=== PATIENT | male | born 1990 | race African-American/Black ===

== ENCOUNTER 2024-03-09 06:12 | Emergency (ER) | payer OTHER ==
--- OUTSIDE RECORDS SUMMARY | 2024-03-09 06:15 | XMS REPORT | Continuity of Care Document ---
Author Name Unknown Address [address] [facility] [address] [place] [address] [facility] thconnect Address [address] [facility] [address] [place] [address] Care Team Providers Care Dredgemaster Name Role Phone Blair Patel DO Primary Care Physician + [phone] Doctor Unassigned, [place] Attending Clinician U Misbah Bautista Attending Clinician [phone] MISBAH GOMEZ Attending Clinician Unavailable JOIE GALDAMEZ Attending Clinician Unavailable ROYCE ROBERTS Attending Clinician Unava ilDUANE Brown Attending Clinician Cecilia vailable MISBAH GOMEZ Admitting Clinician Unavailable KATHY NIETO Admitting Clinician Unavailab le Payers Payer Name Policy Type Policy Number Effective Date Expirati on Date Source Problems Condition Name Condition Details Condition Category Status Onset Date Resolution Date Last Treatment Date Treating Clinician Comments Source 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 [facility] Allergies, Adverse Reactions, Alerts Allergy Name Allergy Type Status Severity Reaction(s) Onset Date Inactive Date Treating Clinician Comments Source NO KNOWN ALLERGIE S Drug Class Active [facility] Social History Social Habit Start Date Stop Date Quantity Comments Source History of tobacco use Cigarette Smoker [facility] to SARS-CoV-2 (event) 2022-05-18 00:00:00 2022-05-28 13:34:00 Not sure [facility] Alcohol intake 2010 00:00:00 2010 00:00:00 [facility] Tobacco Comment 2010 00:00:00 2010 00:00:00 1 cigarette a day [facility] Sex Assigned At 1990 00:00:00 1990 00:00:00 [facility] Smoking Status Start Date Stop Date Source Smokes tobacco daily 2010 00:00:00 [facility] Medications Ordered Medication Name Filled Medication Name Start Date Stop Date Current Medication? Ordering Clinician Indication Dosage Frequency Signature (SIG) Comments Components Source loratadine 10 mg tablet 2021-08 00:00: 00 Yes [id number] 10mg Take 1 tablet by mouth in the morning. [facility] fluticasone propionate 50 mcg/actuati on nasal spray 2021-08 00:00: 00 Yes [id number] 2{spray } Use 2 Sprays in each nostril in the morning. [facility] benzonatate 200 mg capsule 2021-08 00:00: 00 Yes [id number] 200mg Take 1 capsule by mouth 3 (three) times daily as needed for Cough. [facility] albuterol (VENTOLIN) 90 mcg/Actuati on inhaler 2009-08 00:00: 00 Yes 2{puff} Inhale 2 Puffs every 4 (four) hours as needed for Wheezing and Shortness of Breath. [facility] hydrocodone -acetaminop hen (LORTAB) 7.5-500 mg/15 mL(15 mL) solution 04-26 00:00: 00 Yes 15mL Take 15 mL by mouth every 4 (four) hours as needed for Pain. [facility] hydrocodone -acetaminop hen (NORCO 5) 5-325 mg tablet 04-25 00:00: 00 Yes 1{tbl} Take 1-2 Tabs by mouth every 4 (four) hours as needed for Pain. [facility] albuterol (VENTOLIN) 90 mcg/Actuati on inhaler 02-07 00:00: 00 Yes [id number] 2{puff} Inhale 2 Puffs every 4 (four) hours as needed for Wheezing and Shortness of Breath. [facility] ZYRTEC 10 MG ORAL TAB 2008-08 00:00: 00 Yes 1 po daily [facility] Vital Signs Vital Name Observation Time Observation Value Comments S ource Systolic blood pressure 2022-05-28 17:23:00 137 mm[Hg] [facility] Diastolic blood pressure 2022-05-28 17:23:00 101 mm[Hg] [facility] Heart rate 2022-05-28 17:23:00 84 /min [facility] Body temperature 2022-05-28 17:23:00 36.83 Coleen [facility] Respiratory rate 2022-05-28 17:23:00 17 /min [facility] Body height 2022-05-28 17:23:00 170.2 cm [facility] Body weight 2022-05-28 17:23:00 123.378 kg [facility] BMI 2022-05-28 17:23:00 42.60 kg/m2 [facility] Oxygen saturation in Arterial blood by Pulse oximetry 2022-05-28 17:23:00 98 /min [facility] Procedures Procedure Date / Time Performed Performing Clinicia n Source REFERRAL- REQUEST/RESPONSE 2023-06-03 05:01:00 Doctor Unassigned, [place] [facility] XR CHEST 2 VW 2022-05-28 18:42:00 Misbah Gomez [facility] RAPID INFLUENZA A/B 2022-05-28 18:33:00 GomezCherrie barcenas juan [facility] COVID-19 (ID NOW RAPID TESTING) 2022-05-28 18:33:00 Misbah Gomez [facility] CONSENT/REFUSAL FOR DIAGNOSIS AND TREATMENT 2022-05-28 17:14:40 Doctor Unassigned, [place] [facility] Encounters Start Date/Time End Date/Time Encounter Type Admission Type Attending [facility] Care Department Encounter ID Source 2023-06-03 00:00:00 2023-06-03 00:00:00 Orders Only Doctor Unassigned, [place] [facility] [id number] [facility] 2022-05-28 12:25:00 2022-05-28 15:16:00 Emergency GomezMisbah barcenas [facility] [id number] [facility] 2022-05-28 12:25:00 2022-05-28 15:16:00 Emergency X MISBAH GOMEZ [facility] ERT [id number] [facility] 2022-03-19 12:27:00 2022-03-19 13:00:00 Emergency X JOIE GALDAMEZ [facility] ERT [id number] [facility] 2019-10-30 19:16:00 2019-10-30 22:59:00 Emergency E ROYCE ROBERTS [facility] [id number] [facility] 2019-10-30 16:30:00 2019-10-30 17:30:00 Emergency E DUANE COLLINS [facility] [id number]
[2024-03-09] MEDS ORDERED: KETOROLAC 30 MG/ML INJ ONE (06:24)
[2024-03-09] MEDS ORDERED: MORPHINE 4 MG/ML SYR ONE (06:25)
[2024-03-09] MEDS ORDERED: DIPHENHYDRAMINE 50 MG/ML VIAL ONE (06:25)
[2024-03-09] MEDS ORDERED: NA CHLORIDE 0.9% 1,000 ML ONE (06:25)
[2024-03-09] MEDS ORDERED: METOCLOPRAMIDE 10 MG/2mL INJ ONE (06:25)
[2024-03-09 07:32] LABS: Absolute Eosinophils 0.2 K/uL (0-0.5); Absolute Lymphocytes (CBC) 1.6 K/uL (0.7-4.9); Absolute Monocytes 0.3 K/uL (0.1-1.3); Absolute Neutrophil 4.4 K/uL (1.8-8.0); Basophils % 0.7 % (0-1.3); Eosinophils % 2.6 % (0-4.4); Hematocrit 40.9 % (39.6-49.0); Hemoglobin 13.2 g/dL (13.6-17.9); Lymphocytes % 24.9 % (15.3-44.8); MCH 25.9 pg (27.0-35.0); MCHC 32.4 g/dL (32.0-36.0); MCV 80.1 fL (80-100); MPV 7.3 fL (7.6-11.3); Monocytes % 4.5 % (3.3-12.3); Neutrophils % 67.3 % (41.7-73.7); Nucleated Red Blood Cells % 0.3 % (0-0); Platelets 344 thou/uL (152-406); RBC Red Blood Cell Count 5.11 M/uL (4.33-5.43); Red Cell Distribution Width 14.6 % (12.1-15.2)
[2024-03-09 07:49] LABS: Albumin 3.5 g/dL (3.4-5.0); Albumin/Globulin Ratio 0.9 (1.1-1.8); Anion Gap 2.8 mEq/L (5.0-15.0); Bilirubin Total 0.4 mg/dL (0.2-1.0); Globulin 3.9 g/dL (2.3-3.5); Potassium 3.8 mEq/L (3.5-5.1); Protein, Total 7.4 g/dL (6.4-8.2)
--- NOTE | 2024-03-09 08:04 | RAD REPORT ---
EXAM DESCRIPTION: CT - Head Brain Wo Cont - 03/09/2024 6:55 am CLINICAL HISTORY: HEADACHE COMPARISON: No comparisons TECHNIQUE: Noncontrast head CT images were obtained without IV contrast. Multiplanar reformats were generated and reviewed. All CT scans are performed using dose optimization technique as appropriate and may include automated exposure control or mA/KV adjustment according to patient size. FINDINGS: Left frontal approach ventriculostomy catheter crosses the midline, and terminates near th e right foramen of Monro. No intracranial hemorrhage, mass, or edema. Midline structures are unremarkable. Normal ventricular caliber for age. Zaldivar-white matter differentiation is preserved, without evidence of acute infarct. No abnormal extra- axial fluid collections. Mastoid air cells and visualized portions of the paranasal sinuses are clear. No acute bony findings. IMPRESSION: No evidence of an acute intracranial process.
--- NOTE | 2024-03-09 08:09 | ER ---
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 Coronavirus 12 screen: At this time, the client does not indicate any symptoms associated with coronavirus-19. Ebola Screen: No symptoms or risks identified at this time. Initial Sepsis Screen: Does the patient meet any 2 criteria? No. Patient's initial sepsis screen is negative. Does the patient have a suspected source of infection? No. Patient's initial sepsis screen is negative. Risk Assessment: Do you want to hurt yourself or someone else? Patient reports no desire to harm self or others. Onset of symptoms was March 05, 2024. 06:16 Method Of Arrival: EMS: [facility] 06:16 Acuity: DIMITRY 3 [facility] Triage Assessment: 06:19 General: Appears in no apparent distress. Behavior is calm, cooperative. Pain: 12 Complains of pain in scalp. Historical: - Allergies: 06:18 No Known Allergies; 12 - Home Meds: 06:18 Unable to obtain [Active]; [facility] - Immunization history:: Adult Immunizations unknown. - Infectious Disease History:: Denies. - Social history:: Smoking status: Patient denies any tobacco usage or history of. - Family history:: not pertinent. Screenin:26 [facility] ED Fall Risk Assessment (Adult) History of falling in the last 3 months, bp including since admission No falls in past 3 months (0 pts) Confusion or Disorientation No (0 pts) Intoxicated or Sedated No (0 pts) Impaired Gait No (0 pts) Mobility Assist Device Used No (0 pt) Altered Elimination No (0 pt) Score/Fall Risk Level 0 - 2 = Low Risk. Abuse screen: Denies threats or abuse. Denies injuries from another. Nutritional screening: No deficits noted. Tuberculosis screening: No symptoms or risk factors identified. Assessment: 06:19 Neuro: Reports headache in left. Cardiovascular: No deficits noted. Respiratory: 12 Reports. GI: No deficits noted. No signs and/or symptoms were reported involving the gastrointestinal system. : No deficits noted. No signs and/or symptoms were reported regarding the genitourinary system. EENT: No deficits noted. No signs and/or symptoms were reported regarding the EENT system. Derm: No deficits noted. No signs and/or symptoms reported regarding the dermatologic system. Musculoskeletal: No deficits noted. No signs and/or symptoms reported regarding the musculoskeletal system. 07:26 Reassessment: Patient appears in no apparent distress at this time. Patient is alert, bp oriented x 3, equal unlabored respirations, skin warm/dry/pink. Vital Signs: 06:16 BP 143 / 84; Pulse 74; Resp 18; Temp 98.4; Pulse Ox 100% ; jm12 07:26 BP 130 / 87; Pulse 55; Resp 16; Pulse Ox 96% ; bp Lacey Coma Score: 07:40 Eye Response: spontaneous(4). Motor Response: obeys commands(6). Verbal Response: sp4 oriented(5). Total: 15. 07:41 Eye Response: spontaneous(4). Motor Response: obeys commands(6). Verbal Response: sp4 oriented(5). Total: 15. ED Course: 06:15 Patient arrived in ED. jm12 06:16 Otilio Hudson MD is Attending Physician. sp4 06:18 Triage completed. jm12 06:19 Arm band placed on right wrist. jm12 06:[address] jm12 06:56 CT Head Brain wo Cont In Process Unspecified. EDMS 07:11 Attending Physician role handed off by Otilio Hudson MD ec2 07:11 Kaleb Hernandez MD is Attending Physician. ec2 07:17 Aayush Marie, [place] is Primary Nurse. bp 07:20 Inserted saline lock: 22 gauge in right antecubital area, using aseptic technique. bp Blood collected. Flushed with 10 mL NS. 07:27 Patient has correct armband on for positive identification. bp Administered Medications: 07:19 Drug: metoCLOPramide IVP 10 mg IVP once; over 1 to 2 minutes Route: IVP; Site: right bp antecubital; 07:19 Drug: diphenhydrAMINE IVP 25 mg IVP once Route: IVP; Site: right antecubital; bp 07:20 Drug: NS 0.9% IV 1000 ml IV at 1 bolus Per protocol; 1000 mL bolus Route: IV; Rate: 1 bp bolus; Site: right antecubital; 07:20 Drug: TORadol - Ketorolac IVP 30 mg IVP once Route: IVP; Site: right antecubital; bp 07:20 Drug: morphine IVP or IV 4 mg IVP once over 4 mins Route: IVP; Infused Over: 4 mins; bp Site: right antecubital; Outcome: 08:09 Discharge ordered by MD. nieto 08:26 Patient left the ED. aa5 Signatures: Dispatcher [employer] EDAngelica Vaca RN RN aa5 Aayush Marie RN RN Otilio Peralta MD MD sp4 Kaleb Hernandez MD MD ec2 Denadra Retana RN RN jm12
--- NOTE | 2024-03-09 08:10 | EDPHYS ---
Physician Documentation [facility] Name: Eugene Serrano Age: 34 yrs Sex: Male : 1990 Arrival Date: 03/09/2024 Time: 06:12 Bed 4 Private MD: ED Physician Kaleb Hernandez HPI: 03/09 06:16 This 34 yrs old Black Male presents to ER via Unassigned with complaints of headache . sp4 07:40 4-year-old male with prior history of meningitis presents with moderate to severe sp4 headache with EMS. Patient denies any other symptoms. Historical: - Allergies: 06:18 No Known Allergies; jm12 - Home Meds: 06:18 Unable to obtain [Active]; [facility] - Immunization history:: Adult Immunizations unknown. - Infectious Disease History:: Denies. - Social history:: Smoking status: Patient denies any tobacco usage or history of. - Family history:: not pertinent. ROS: 07:40 Constitutional: Negative for fever, chills, and weight loss, positive for acute sp4 headache 07:40 All other systems are negative, Exam: 07:40 Constitutional: This is a well developed, well nourished patient who is awake, alert, sp4 and in no acute distress. Head/Face: Normocephalic, atraumatic. 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 Lids and lashes normal. Conjunctiva and sclera are not injected. Cornea within normal limits. Periorbital areas with no swelling, redness, or edema. ENT: Nares patent. No nasal discharge, no septal abnormalities noted. Tympanic membranes are normal and external auditory canals are clear. Oropharynx with no redness, swelling, or masses, exudates, or evidence of obstruction, uvula midline. Mucous membranes moist. Neck: Trachea midline, no thyromegaly or masses palpated, and no cervical lymphadenopathy. Supple, full range of motion without nuchal rigidity, or vertebral point tenderness. Chest/axilla: Normal chest wall appearance and motion. Nontender with no deformity. No lesions are appreciated. Cardiovascular: Regular rate and rhythm with a normal S1 and S2. No gallops, murmurs, or rubs. Normal PMI, no JVD. No pulse deficits. Respiratory: Lungs have equal breath sounds bilaterally, clear to auscultation and percussion. No rales, rhonchi or wheezes noted. No increased work of breathing, no retractions or nasal flaring. Abdomen/GI: Soft, with normal bowel sounds. No distension or tympany. No guarding or rebound. No evidence of tenderness throughout. Back: No spinal tenderness. No costovertebral tenderness. Skin: Warm, dry with normal turgor. Normal color with no rashes, no lesions, and no evidence of cellulitis. MS/ Extremity: Pulses equal, no cyanosis. Neurovascular intact. Full, normal range of motion. Neuro: Awake and alert, GCS 15, oriented to person, place, time, and situation. Cranial nerves II-XII grossly intact. Motor strength 5/5 in all extremities. Sensory grossly intact. Psych: Awake, alert, with orientation to person, place and time. Behavior, mood, and affect are within normal limits Vital Signs: 06:16 BP 143 / 84; Pulse 74; Resp 18; Temp 98.4; Pulse Ox 100% ; jm12 07:26 BP 130 / 87; Pulse 55; Resp 16; Pulse Ox 96% ; bp Lacey Coma Score: 07:40 Eye Response: spontaneous(4). Motor Response: obeys commands(6). Verbal Response: sp4 oriented(5). Total: 15. 07:41 Eye Response: spontaneous(4). Motor Response: obeys commands(6). Verbal Response: sp4 oriented(5). Total: 15. MDM: 06:18 Patient medically screened. sp4 07:13 Data reviewed: vital signs. ED course: Patient signed out to me by previous physician, emilia in brief patient arrives today for evaluation of headache, history of shunt. Plan is to follow-up CT scan of the head as well as lab work. Plan is to reassess patient and likely discharge home pending pain reassessment and imaging results.. 07:41 Differential diagnosis: migraine, otitis, vasomotor headache. Transition of care: After sp4 a detail discussion of the patient's case, care is transferred to Kaleb Hernandez MD. 08:02 ED course: Labs are nonactionable. . ec2 08:08 ED course: CT scan of the head shows no acute intracranial process.. ec2 08:09 ED course: On reassessment patient ambulatory without issue, is well-appearing no acute ec2 distress. Will discharge home. Return precautions given.. 03/09 06:17 Order name: CBC with Diff; Complete Time: 08:02 sp4 03/09 06:17 Order name: CMP; Complete Time: 08:02 sp4 03/09 06:17 Order name: Lipase; Complete Time: 08:02 sp4 03/09 06:17 Order name: CT Head Brain wo Cont; Complete Time: 08:08 sp4 03/09 06:17 Order name: IV Saline Lock; Complete Time: 07:19 sp4 03/09 06:17 Order name: Labs collected and sent; Complete Time: 07:19 sp4 Administered Medications: 07:19 Drug: metoCLOPramide IVP 10 mg IVP once; over 1 to 2 minutes Route: IVP; Site: right bp antecubital; 07:19 Drug: diphenhydrAMINE IVP 25 mg IVP once Route: IVP; Site: right antecubital; bp 07:20 Drug: NS 0.9% IV 1000 ml IV at 1 bolus Per protocol; 1000 mL bolus Route: IV; Rate: 1 bp bolus; Site: right antecubital; 07:20 Drug: TORadol - Ketorolac IVP 30 mg IVP once Route: IVP; Site: right antecubital; bp 07:20 Drug: morphine IVP or IV 4 mg IVP once over 4 mins Route: IVP; Infused Over: 4 mins; bp Site: right antecubital; Disposition Summary: 03/09/24 08:09 Discharge Ordered Notes: Location: Home ec2 Condition: Stable ec2 Diagnosis - Headache ec2 Followup: ec2 - With: Private Physician - When: - Reason: Re-evaluation by your physician Discharge Instructions: - Discharge Summary Sheet ec2 - General Headache Without Cause ec2 Forms: - Medication Reconciliation Form ec2 - Antibiotic Education ec2 - Prescription Opioid Use ec2 - Patient Portal Instructions ec2 - Leadership Thank You Letter ec2 Prescriptions: - Compazine 10 mg Oral Tablet - take 1 tablet ORAL route every 8 hours As needed; 20 tablet; Refills: 0, ec2 Product Selection Permitted Signatures: Dispatcher [employer] Aayush Jeffery RN RN Otilio Peralta MD MD sp4 Kaleb Hernandez MD MD ec2 Deandra Retana, RN RN jm12 Corrections: (The following items were deleted from the chart) 06:18 06:17 CBC+H.LAB.BRZ ordered. EDMS EDMS :18 06:17 COMPREHENSIVE METABOLIC PANEL+C.LAB.BRZ ordered. EDMS EDMS :18 06:17 LIPASE+C.LAB.BRZ ordered. EDMS EDMS :18 06:17 Urinalysis+U.LAB.BRZ ordered. EDMS EDMS
[2024-03-09 10:17] VITALS: TEMP 98.4
[2024-03-09 10:19] VITALS: BP 130/87; O2SAT 96
== END 2024-03-09 08:26 | disposition home or self-care (01) ==
LOC: ER 06:12
DX: R51.9 Headache, unspecified (principal)
CPT/HCPCS: 85025; 36415; 83690; 80053; 70450; 96375; 96374; 99284; J2765; J1200; J7030